=== PATIENT | male | born 1950 | race Caucasian/White ===

== ENCOUNTER 2016-12-15 17:46 | Emergency (ER) | payer OTHER ==
[2016-12-15 18:00] VITALS: BP 168/103; PULSE 68; RESP 16; TEMP 98.1; O2SAT 95
--- NOTE | 2016-12-15 18:05 | UCPHY ---
H & P Time Seen by Provider: 12/15/16 17:56 Patient Type: New HPI/ROS: 66-year-old male presents complaining of nasal congestion, sinus congestion, purulent drainage from his nose. Review of systems As per HPI Sinus and nasal congestion positive URI symptoms General no fever no chills no weakness HEENT no eye pain no eye discharge. No eye redness, no sore throat Respiratory minimal cough, no shortness of breath Cardiac no chest pain, no peripheral edema GI no abdominal pain, no diarrhea, no constipation, no nausea, no vomiting no flank pain, no hematuria, no dysuria Musculoskeletal no myalgias, no joint pain Heme no easy bruising, no easy bleeding Endo no polyuria, no polydipsia Skin no rashes, no pruritus Neuro no syncope, no dizziness, no headaches Psych is no suicidal ideation, no homicidal ideation Past Medical/Surgical History: Noncontributory Social History: Travels frequently for work His 1st language is Algerian Smoking Status: Never smoked Physical Exam: 66-year-old male Alert and oriented nontoxic appearance, no acute distress afebrile Atraumatic normocephalic Extraocular muscles intact, anicteric Nares mild yellowish discharge, right nasal turbinates erythema and edema Oropharynx mild erythema no tonsillar swelling no exudate no uvular deviation, tolerating own secretions Neck supple no lymphadenopathy Lungs clear to auscultation bilaterally Heart regular rate and rhythm Abdomen normoactive bowel sounds soft nontender Extremities no cyanosis clubbing or edema Skin no rash Constitutional: Initial Vital Signs Temperature (C) 36.7 C 12/15/16 17:58 Heart Rate 68 12/15/16 17:58 Respiratory Rate 16 12/15/16 17:58 Blood Pressure 168/103 H 12/15/16 17:58 O2 Sat (%) 95 12/15/16 17:58 O2 Delivery Mode Room Air Allergies/Adverse Reactions: amoxicillin [Amoxicillin] Allergy (Severe, Verified 05/11/13 14:51) Other-Enter Comments Penicillins Allergy (Severe, Verified 05/11/13 14:51) Other-Enter Comments Sulfa (Sulfonamide Antibiotics) Allergy (Severe, Verified 05/06/13 09:35) Hives Home Medications: Medication Instructions Recorded Aspirin EC [Aspirin EC 81 mg (OTC)] 81 mg PO DAILY 05/06/13 Valsartan [Diovan 160MG (RX)] 160 mg PO DAILY 05/06/13 AZITHROMYCIN [Z-PACK] 250 mg PO DAILY #6 tab 12/15/16 Medical Decision Making ED Course/Re-evaluation: Patient seen and evaluated for sinus and nasal congestion Differential diagnosis considered URI, acute sinusitis, viral syndrome Impression Acute sinusitis Plan Z-Rodrigo Flonase Follow-up PCP Departure - Departure Disposition: Home, Routine, Self-Care Clinical Impression: Sinusitis Condition: Good Instructions: Sinusitis (ED) Additional Instructions: flonase or fluticasone twice a day in the right nares! Referrals: SHELL PATRICK [Primary Care Provider] - As per Instructions Prescriptions: AZITHROMYCIN [Z-PACK] 250 mg PO DAILY #6 tab - PQRS PQRS Measurement: na
== END 2016-12-15 18:19 | disposition home or self-care (01) ==
LOC: CED 18:10
DX: J01.90 Acute sinusitis, unspecified (principal); Z88.1 Allergy status to other antibiotic agents; Z88.0 Allergy status to penicillin; Z88.2 Allergy status to sulfonamides
CPT/HCPCS: 99203-PO; G0463-PO

== ENCOUNTER → 2017-03-06 | Outpatient (CLI) | payer OTHER | LOC: CIMAGING 08:08 | PROVIDERS: ATTEND Internal Medicine Gastroenterology | DX: R10.11 Right upper quadrant pain (principal); N28.1 Cyst of kidney, acquired | CPT/HCPCS: 76705-PO ==

== ENCOUNTER 2017-09-14 11:38 | Emergency (ER) | payer OTHER ==
[2017-09-14 11:44] VITALS: BP 155/90; PULSE 67; RESP 16; TEMP 97.9; O2SAT 95
--- NOTE | 2017-09-14 12:03 | EDPHY ---
H & P Time Seen by Provider: 09/14/17 11:46 HPI/ROS: 66-year-old male presents complaining of bilateral itchy watery eyes right greater than left that began late yesterday possibly this morning. No fevers or chills, no unusual exposures. He does state he went swimming yesterday. No eye pain Review of systems As per HPI General no fever no chills no weakness HEENT no eye pain no eye discharge. Positive eye redness, no sore throat Respiratory no cough, no shortness of breath Cardiac no chest pain, no peripheral edema GI no abdominal pain, no diarrhea, no constipation, no nausea, no vomiting no flank pain, no hematuria, no dysuria Musculoskeletal no myalgias, no joint pain Heme no easy bruising, no easy bleeding Endo no polyuria, no polydipsia Skin no rashes, no pruritus Neuro no syncope, no dizziness, no headaches Psych is no suicidal ideation, no homicidal ideation Past Medical/Surgical History: Hypertension Social History: No alcohol no drugs Smoking Status: Former smoker Physical Exam: 66-year-old male Alert and oriented in no acute distress nontoxic appearance, afebrile Atraumatic normocephalic Neck no JVD Lungs clear to auscultation, no respiratory distress Heart regular rate and rhythm Extremities no cyanosis clubbing edema Bilateral eyes with mild conjunctival erythema, right greater than left, extraocular muscles intact, anicteric Fluorescein no uptake no pooling Slit-lamp negative Constitutional: Initial Vital Signs Temperature (C) 36.6 C 09/14/17 11:42 Heart Rate 67 09/14/17 11:42 Respiratory Rate 16 09/14/17 11:42 Blood Pressure 155/90 H 09/14/17 11:42 O2 Sat (%) 95 09/14/17 11:42 O2 Delivery Mode Room Air Allergies/Adverse Reactions: amoxicillin [Amoxicillin] Allergy (Severe, Verified 09/14/17 11:46) Pt reports shock, HIVES Penicillins Allergy (Severe, Verified 09/14/17 11:46) Pt reports anaphylaxis Sulfa (Sulfonamide Antibiotics) Allergy (Severe, Verified 09/14/17 11:46) Pt reports Hives and rash Home Medications: Medication Instructions Recorded Aspirin 09/14/17 Celebrex 09/14/17 Diovan 09/14/17 Medical Decision Making ED Course/Re-evaluation: Patient seen and evaluated for bilateral eye redness right greater than left Exam remarkable for conjunctival erythema right greater than left, otherwise negative Impression Conjunctivitis, likely viral versus allergic Plan Conjunctivitis instructions given Warm compresses Follow-up with Ophthalmology if not improving Differential Diagnosis: Diagnoses considered but not limited to Conjunctivitis: Viral, allergic, bacterial Herpetic conjunctivitis Uveitis Blepharitis Departure - Departure Disposition: Home, Routine, Self-Care Clinical Impression: Acute conjunctivitis of both eyes Condition: Good Instructions: Conjunctivitis (ED) Additional Instructions: Warm compresses several times a day. Avoid rubbing eyes. follow with opthalmology if not improving Referrals: SHELL PATRICK [Primary Care Provider] - As per Instructions
== END 2017-09-14 12:08 | disposition home or self-care (01) ==
LOC: CED 11:38
DX: H10.33 Unspecified acute conjunctivitis, bilateral (principal); I10 Essential (primary) hypertension; Z87.891 Personal history of nicotine dependence; Z79.82 Long term (current) use of aspirin

== ENCOUNTER → 2017-12-17 | Outpatient (CLI) | payer OTHER | LOC: FIMAGING 10:54 | PROVIDERS: ATTEND Family Medicine | DX: R91.1 Solitary pulmonary nodule (principal); J84.10 Pulmonary fibrosis, unspecified ==

== ENCOUNTER → 2018-03-14 | Outpatient (CLI) | payer OTHER ==
[~2018-03-14] MED LIST: IOPAMIDOL (ISOVUE-300) 100 ML BTL ONE
== END ==
LOC: FIMAGING 15:30
PROVIDERS: ATTEND Physician Assistant
DX: K57.30 Diverticulosis of large intestine without perforation or abscess without bleeding (principal); I70.0 Atherosclerosis of aorta; M48.05 Spinal stenosis, thoracolumbar region
CPT/HCPCS: Q9967

== ENCOUNTER 2018-05-29 16:45 | Emergency (ER) | payer OTHER ==
--- NOTE | 2018-05-29 18:09 | EDPHY ---
H & P Time Seen by Provider: 05/29/18 17:36 HPI/ROS: Chief complaint. Urinary retention HPI. Patient is a 67-year-old male who had a green light TURP in January 2018. Over the past several months he has been passing scabs and tissue. He has occasionally had blockage of urine since January. He has been treating it mainly with drinking plenty of water and it flushes out the clot. However 2 days ago he had urinary or obstruction and saw the urologist who did his TUR P. A Pérez was placed. He scheduled for another procedure tomorrow morning. However today the catheter was blocked for about 3 hr. He had sense of full bladder but otherwise no pain. No other complaints ROS Constitutional. no fever/chills, no weakness Eyes. no problems with vision ENT. no sore throat, no nasal drainage Cardiovascular. no chest pain Respiratory. no shortness of breath, no cough Abdominal. no abdominal pain, no nausea/vomiting, no diarrhea . Catheter urinary obstruction MS. no calf pain/swelling, no neck/back pain, no joint pain Skin. no rash Lymph. no swollen glands Neuro. no headache, no dizziness, no difficulty walking or with speech Past Medical/Surgical History: Hypertension, TURP, L4/5 decompression Social History: , nonsmoker, no alcohol Smoking Status: Former smoker Physical Exam: General Appearance: Alert male mild distress vital signs significant for and blood pressure 176/110 Eyes:[ Pupils equal and round no pallor or injection]. ENT,[ Mouth: Mucous membranes are moist.] Respiratory: [There are no retractions, lungs are clear to auscultation.] Cardiovascular:[ Regular rate and rhythm.] Gastrointestinal: Abdomen is soft with possible palpable bladder but not particularly tender. Rest of abdominal exam is normal. No urine in the catheter bag Neurological: [Awake and alert, sensory and motor exams grossly normal.] Skin:[ Warm and dry, no rashes.] Musculoskeletal: [Neck is supple nontender.] Extremities [ symmetrical, full range of motion.] Psychiatric:[ Patient is oriented X 3, there is no agitation.] Constitutional: Initial Vital Signs Temperature (C) 36.6 C 05/29/18 16:50 Heart Rate 95 05/29/18 16:50 Respiratory Rate 16 05/29/18 16:50 Blood Pressure 176/110 H 05/29/18 16:50 O2 Sat (%) 93 05/29/18 16:50 O2 Delivery Mode Room Air Allergies/Adverse Reactions: amoxicillin [Amoxicillin] Allergy (Severe, Verified 05/29/18 16:49) Pt reports shock, HIVES Penicillins Allergy (Severe, Verified 05/29/18 16:49) Pt reports anaphylaxis Sulfa (Sulfonamide Antibiotics) Allergy (Severe, Verified 05/29/18 16:49) Pt reports Hives and rash Home Medications: Medication Instructions Recorded Celebrex 09/14/17 Diovan 09/14/17 Medical Decision Making Procedures: The catheter is flushed and now is working with return of urine into the bag. ED Course/Re-evaluation: Patient and I discussed treatment plan including criteria for return importance of follow-up and keeping the appointment for tomorrow morning for another procedure. He expresses understanding and agreement Differential Diagnosis: This appears to be urinary obstruction probably from tissue in the urethra or bladder. Catheter is now working. Departure - Departure Disposition: Home, Routine, Self-Care Clinical Impression: Acute retention of urine Condition: Good Instructions: Urinary Retention in Men (ED), Pérez Catheter Placement and Care (ED) Additional Instructions: If the catheter appears to be block may flush as we have instructed you to. Return if unable to adequately flush catheter and produce urine. Keep your follow-up appointment and procedure tomorrow morning Referrals: NONE *PRIMARY CARE P,. [Primary Care Provider] - As per Instructions
[2018-05-29 18:23] VITALS: BP 155/99
== END 2018-05-29 18:24 | disposition home or self-care (01) ==
PROC: 3E1K38Z Irrigation of Genitourinary Tract using Irrigating Substance, Percutaneous Approach (ICD-10-PCS; principal; 2018-05-29)
DX: R33.9 Retention of urine, unspecified (principal); Z87.891 Personal history of nicotine dependence

== ENCOUNTER 2018-08-24 14:10 | Emergency (ER) | payer OTHER ==
--- NOTE | 2018-08-24 14:22 | EDPHY ---
H & P Stated Complaint: Pain L shoulder blade when woke worse w/mvmt and tingling L hand - Personal History Tetanus Vaccine Date: within 10 years - Medical/Surgical History Hx Asthma: No Hx Chronic Respiratory Disease: No Hx Diabetes: No Hx Cardiac Disease: No Hx Renal Disease: No Hx Cirrhosis: No Hx Alcoholism: No Hx HIV/AIDS: No Hx Splenectomy or Spleen Trauma: No Other PMH: HTN, 2015 L4/5 decompression. BPH grren light - Social History Smoking Status: Former smoker Time Seen by Provider: 08/24/18 14:21 Constitutional: Initial Vital Signs Temperature (C) 36.7 C 08/24/18 14:13 Heart Rate 78 08/24/18 14:13 Respiratory Rate 16 08/24/18 14:13 Blood Pressure 165/80 H 08/24/18 14:13 O2 Sat (%) 97 08/24/18 14:13 O2 Delivery Mode Room Air Allergies/Adverse Reactions: amoxicillin [Amoxicillin] Allergy (Severe, Verified 05/29/18 16:49) Pt reports shock, HIVES Penicillins Allergy (Severe, Verified 05/29/18 16:49) Pt reports anaphylaxis Sulfa (Sulfonamide Antibiotics) Allergy (Severe, Verified 05/29/18 16:49) Pt reports Hives and rash Home Medications: Medication Instructions Recorded Celebrex 09/14/17 Diovan 09/14/17 Aspirin EC 81 mg (*) 08/24/18 Hydrocodone/APAP 5/325 [Curlew 1 - 2 each PO Q4-6PRN PRN #20 tab 08/24/18 5/325] Medical Decision Making ED Course/Re-evaluation: CHIEF COMPLAINT: Pain in left shoulder HISTORY OF PRESENT ILLNESS: The patient is a 67 y/o male complaining of pain in the back of his left shoulder blade, onset this morning. He went to the gym yesterday but reports he did his normal workout. This morning, he awoke with a sharp pain in his left shoulder blade and weakness and numbness in his left hand , forearm, and triceps. He found standing and moving uncomfortable. He tried ice , heat, and ibuprofen and found only minor improvement. He denies any other associated symptoms. REVIEW OF SYSTEMS: A comprehensive 10 system review of systems is otherwise negative aside from elements mentioned in the history of present illness and medical decision making. PHYSICAL EXAM: HR, BP, O2 Sat, RR. Temp noted General Appearance: Alert, well hydrated, appropriate, and non-toxic appearing. Head: Atraumatic without scalp tenderness or obvious injury Eyes: Pupils equal, round, reactive to light and accommodation, EOMI, no trauma , no injection. Neck: Supple, 2+ carotid upstroke, nontender, no lymphadenopathy. Respiratory: No retractions, no distress, no wheezes, and no accessory muscle use. Lungs are clear to auscultation bilaterally. Cardiovascular: Regular rate and rhythm, no murmurs, rubs, or gallops. Good capillary refill all extremities. Gastrointestinal: Abdomen is soft, nontender, non-distended, no masses, no rebound, no guarding, no peritoneal signs. Musculoskeletal: Normal active ROM of all extremities, atraumatic. Neurological: Alert, appropriate, and interactive. 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 Skin: No rashes, good turgor, no nodules on palpation. Past medical history: Hypertension Past surgical history: L4/L5 decompression, bone graft for sinuses Family history: Non-contributory Social history: at bedside, lives in [place], employed by [employer] DIAGNOSTICS/PROCEDURES/CRITICAL CARE TIME: DIFFERENTIAL DIAGNOSIS: The differential diagnosis for the patient's pain included but was not limited to musculo-skeletal pain, epidural abscess, herniated disk, spinal fracture, and intra-abdominal causes including urinary system. MEDICAL DECISION MAKING: The patient presents with pain in the back of the left shoulder blade with numbness and weakness in the left hand, forearm, and triceps. I feel he most likely has a herniated disc in the low cervical spine. I offered steroids but he just had a sinus bone graft and cannot take steroids for 2 weeks to ensure proper bone healing. Plan for MRI. (Abdullahi David) Other Provider: Patient signed out to me at 1500 by Joann pending MRI of the c-spine. This was reported to me by the radiologist as positive for multi-level degenerative disc disease which seems consistent with his symptoms. On re-evaluation at 1550 , patient is comfortable. We discussed his findings and need for follow-up. I think he is safe for discharge home. (Michele Barkley) Departure - Departure Disposition: Home, Routine, Self-Care Clinical Impression: Herniated disc, cervical Condition: Good Instructions: Cervical Disc Herniation (ED) Additional Instructions: 1. Please follow up with neurosurgery this week regarding your visit today. 2. Take the prescribed Curlew as directed as needed for pain. 3. Return for any worsening of condition including uncontrollable pain, change in neurologic symptoms and difficulty breathing. Referrals: SHELL PATRICK [Primary Care Provider] - As per Instructions Hayder Baird MD [Medical Doctor] - As per Instructions Prescriptions: Hydrocodone/APAP 5/325 [Curlew 5/325] 1 - 2 each PO Q4-6PRN PRN #20 tab PRN Reason: Pain, Moderate Report Scribed for: Abdullahi David Report Scribed by: Tiffanie Thompson Date of Report: 08/24/18 Time of Report: 14:39
[2018-08-24 16:18] VITALS: BP 139/92
== END 2018-08-24 16:16 | disposition home or self-care (01) ==
DX: M50.222 Other cervical disc displacement at C5-C6 level (principal); I10 Essential (primary) hypertension; X50.9XXA Other and unspecified overexertion or strenuous movements or postures, initial encounter; Y93.B9 Activity, other involving muscle strengthening exercises; Y92.89 Other specified places as the place of occurrence of the external cause; Z87.891 Personal history of nicotine dependence

== ENCOUNTER 2018-11-18 16:19 | Emergency (ER) | payer OTHER ==
[2018-11-18 16:34] VITALS: BP 173/111
--- NOTE | 2018-11-18 17:14 | EDPHY ---
H & P Time Seen by Provider: 11/18/18 16:24 HPI/ROS: CHIEF COMPLAINT: Sore throat, nasal congestion. HISTORY OF PRESENT ILLNESS: Patient states that he has been ill with sore throat, sinus congestion for about 1 week. He states it started as a sore throat but has been going back and forth between sinus congestion and sore throat. He states he has used 2 bottles of Afrin and ran out today. He denies cough, shortness of breath, chest pain. He did lose his voice and Saturday but is better today. He has had no known sick contacts. REVIEW OF SYSTEMS: Constitutional: No fever, no chills. Eyes: No discharge. ENT: Per HPI Cardiovascular: No chest pain, no palpitations. Respiratory: No cough, no shortness of breath. Gastrointestinal: No abdominal pain, no vomiting. Genitourinary: No dysuria. Musculoskeletal: No back pain. Skin: No rashes. Neurological: No headache. General Appearance: Alert, no distress. Eyes: Pupils equal and round no pallor or injection. ENT, Mouth: Mucous membranes moist. No tonsillar hypertrophy or exudate. Some posterior pharyngeal erythema. Nasal passages with erythema, some blood and mucus. Respiratory: There are no retractions, lungs are clear to auscultation. Cardiovascular: Regular rate and rhythm. Gastrointestinal: Abdomen is soft and nontender, no masses, bowel sounds normal. Neurological: Awake, alert, cranial nerves intact. Skin: Warm and dry, no rashes. Musculoskeletal: Neck is supple nontender. Extremities are symmetrical, full range of motion, no edema. Psychiatric: Patient is oriented X 3, there is no agitation. Medical/surgical history: Hypertension, L4-5 decompression, BPH. Social history: Denies tobacco or drugs. Smoking Status: Former smoker Constitutional: Initial Vital Signs Temperature (C) 36.6 C 11/18/18 16:28 Heart Rate 84 11/18/18 16:28 Respiratory Rate 18 11/18/18 16:28 Blood Pressure 194/123 H 11/18/18 16:28 O2 Sat (%) 96 11/18/18 16:28 O2 Delivery Mode Room Air Allergies/Adverse Reactions: amoxicillin [Amoxicillin] Allergy (Severe, Verified 11/18/18 16:33) Pt reports shock, HIVES Penicillins Allergy (Severe, Verified 11/18/18 16:33) Pt reports anaphylaxis Sulfa (Sulfonamide Antibiotics) Allergy (Severe, Verified 11/18/18 16:33) Pt reports Hives and rash clindamycin Allergy (Verified 11/18/18 16:33) Home Medications: Medication Instructions Recorded Celebrex 09/14/17 Diovan 09/14/17 Aspirin EC 81 mg (*) 08/24/18 Medical Decision Making Differential Diagnosis: Differential diagnosis includes but is not limited to sinus infection, strep pharyngitis, other upper respiratory illness, hypertensive emergency. After evaluation patient with likely resolving viral upper respiratory infection. Suspect his very elevated blood pressure related to heavy use of Afrin over the last week and advised him to discontinue this medication immediately. Discussed conservative methods to relieve sinus congestion and sore throat such as sterile nasal saline wash, [id number] medications. No fevers or a high risk features to suggest serious bacterial illness. 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 Heriberto Solorio for blood pressure recheck in the near future. Understands return precautions. Stable for discharge. Departure - Departure Disposition: Home, Routine, Self-Care Clinical Impression: Acute upper respiratory infection Condition: Good Instructions: Upper Respiratory Infection (ED) Additional Instructions: Try the Neti pot or [place] nasal spray as discussed. Stop using Afrin. You can use Tylenol for pain as needed with your Celebrex and aspirin. Salt water gargles may be effective as well. Referrals: Unknown,Unknown [Primary Care Provider] - As per Instructions
== END 2018-11-18 17:20 | disposition home or self-care (01) ==
LOC: CED 16:19
DX: J22 Unspecified acute lower respiratory infection (principal)
CPT/HCPCS: 99282-ER